=== PATIENT | male | born 1945 | race Caucasian/White ===

== ENCOUNTER 2024-07-05 10:50 | Inpatient (IN) | payer MEDICARE, SELFPAY ==
[2024-06-30 10:06] VITALS: BMI 24.0
[2024-06-30 11:04] LABS: % Basophils 0.7 % (0-2); % Eosinophils 1.6 % (0-6); % Immature Granulocytes 0.5 % (0-0.5); % Lymphocytes 17.4 % (20.5-51.1); % Monocytes 8.7 % (1.7-9.3); % Neutrophils 71.1 % (42.2-75.2); Absolute Basophils 0.1 10^3/uL (0-0.2); Absolute Eosinophils 0.2 10^3/uL (0-0.7); Absolute Immature Granulocytes 0.1 10^3/uL (0-0.05); Absolute Lymphocytes 2.4 10^3/uL (1.2-3.4); Absolute Monocytes 1.2 10^3/uL (0.1-0.6); Absolute Neutrophils 9.6 10^3/uL (1.4-6.5); Hemoglobin 12.6 g/dL (13.0-18.0); Mean Corp Hgb Conc. 33.2 g/dL (33.0-37.0); Mean Corpuscular Hgb 30.1 pg (27.0-31.0); Mean Corpuscular Volume 90.9 fL (80.0-94.0); Mean Platelet Volume 9.6 fL (7.4-10.4); Nucleated Red Blood Cells % 0 % (-); Platelet Count 224 10^3/uL (130-400); Red Blood Cell Count 4.18 10^6/uL (4.70-6.10); Red Cell Dist. Width 16.1 % (11.5-14.5); White Blood Cell Count 13.5 10^3/uL (4.8-10.8)
[2024-06-30 11:10] LABS: INR 1.12; PT 14.5 Sec (11.4-14.6)
[2024-06-30 11:11] LABS: APTT 30.4 Sec (23.4-35.0)
[2024-06-30 11:22] LABS: Blood Urea Nitrogen 54 mg/dl (9-20); Carbon Dioxide 33 mmol/L (22-30); Chloride 98 mmol/L (98-107); Estimated Creatinine Clearance 21 ml/min; Glucose 101 mg/dl (70-99); Potassium 4.1 mmol/L (3.5-5.1); Sodium 141 mmol/L (135-145); eGFR 26.78
--- NOTE | 2024-07-01 09:34 | PTCARENOTE ---
Halle @ Dr. Harrison office notified of patients 06/30- BUN-54; Creat-2.4; GFR 26.78
[2024-07-05] VITALS (19 sets, daily range): BP systolic 114–197; BP diastolic 49–103; BMI 24.0; BMI 24.2
--- NOTE | 2024-07-05 11:03 | W.SUR.PREOP ---
Pre-Operative Surgical Note
-
I have examined this patient prior to the performance of the scheduled procedure.
The patient's condition is unchanged from the time of the current History and
Physical and the patient is able to undergo the scheduled procedure.
[2024-07-05] MEDS: BACTROBAN NASAL 1 GRAM NASAL (12:19)
[2024-07-05] MEDS: PERIDEX 0.12% ORAL RINSE 15 ML PO (12:19)
[2024-07-05] MEDS: NSS 500 IV (12:19)
[2024-07-05 15:42] LABS: ACT-LR - POC 318 Seconds (116-155)
[2024-07-05 15:49] LABS: Glucose - Point of Care 92 mg/dl (70-99)
--- NOTE | 2024-07-05 16:29 | OR.RPT ---
Operative Report
Operative Report
Date of Operation: 07/05/2024
Pre Op Diagnosis: Asymptomatic high-grade stenosis of the left internal carotid artery
Post Op Diagnosis: Asymptomatic high-grade stenosis of the left internal carotid artery
Procedure: LEFT carotid endarterectomy with patch angioplasty using bovine pericardium
Surgeon: Alexander Pastrana III, MD
Chemistry Technical Officer: Suzette Ignacio MD PGY-8
Anesthesia: General
Complications: None
History and Indications for Procedure: 79-year-old male with high-grade stenosis of the left internal carotid artery, asymptomatic
Procedure in Detail: Chi Downing was correctly identified and placed supine on the operating table. After adequate induction of anesthesia the left neck was positioned, prepped and draped in the usual sterile fashion. Preoperative antibiotics were
administered. A timeout procedure was performed with the nursing and anesthesia staff confirming the patients identity as well as the nature and laterality of the procedure.
The carotid bifurcation was marked with ultrasound at the beginning of the case. The incision was planned accordingly. An incision was made along the anterior border of the left sternocleidomastoid muscle. Electrocautery was used to divide the
subcutaneous tissue and platysma. The carotid sheath was entered with sharp dissection. The internal jugular vein was retracted laterally. The vagus nerve was identified and protected throughout the case. The common carotid artery was identified at
the base of this incision and carefully encircled with a vessel loop. The patient was systemically heparinized. The dissection was continued distally towards the carotid bifurcation. The facial vein was skeletonized, ligated and divided between ties
and clips. The proximal external carotid artery was encircled with a vessel loop. The distal internal carotid artery was encircled with a vessel loop at a soft spot on the artery beyond the plaque. The hypoglossal nerve was identified and protected.
The internal vessel loop was secured followed by the common and external. An arteriotomy was made on the distal common carotid artery with an 11-blade. This was extended proximally and distally with Galvan scissors. The arteriotomy was extended
distally through the plaque to an area of normal appearing internal carotid artery. The distal vessel loop was replaced with a short tip hockey-stick type vascular clamp. An endarterectomy was performed with a [place] elevator in the standard
fashion. The proximal extent of the plaque was transected with scissors. The distal end of the plaque in the internal carotid artery feathered very nicely with no distal intimal flap identified. The plaque extending into the external carotid artery
was everted. Once the plaque was fully removed the endarterectomy plane was irrigated with heparinized saline and any loose fronds of tissue were removed. A pre-cut piece of bovine pericardium was sewn in place using a running 6-0 Prolene suture.
Prior to the completion of the patch the common carotid was allowed to forward bleed and the external was allowed to back bleed. The area under the patch was irrigated with heparinized saline to remove any potential thrombus or debris. The
anastomosis was completed.
The external vessel loop was released first, followed by the common and then the internal. There was an excellent pulse in the distal internal carotid artery. An excellent quality Doppler signal in the distal internal carotid artery was also
confirmed. The patch suture line was closely inspected for hemostasis and was achieved. Protamine was administered. Hemostasis was achieved in the wound bed. The wound was irrigated with saline solution.
The wound was then closed in layers. Sterile dressings were applied. The patient awoke from anesthesia with no immediate neuro deficits and was taken to the PACU in stable condition.
Attestation: I was present and responsible for the entire procedure
Signed:
Alexander Pastrana III, MD
[facility] Surgery
[phone] (cell)
--- NOTE | 2024-07-05 16:30 | CON.INTV ---
Consultation
Consultation Request
Date/Time Consultation Requested: 07/05/2024 - 153
Date/Time Consultation Performed: 07/05/2024 - 160
Requesting Provider: REYMUNDO Panchal
Performing Provider: Myles Cardona MD
Reason for Consultation: s/p L-CEA
Medical History
-
Chief Complaint: Elective left CEA
History of Present Illness:
79-year-old male tobacco smoker with a past medical history of bilateral carotid artery stenosis and AAA without rupture who presents with elective left carotid endarterectomy. He is known to vascular surgery with Dr. Pastrana with last office visit
on 05/03/2024. He has significant stenosis in the proximal left ICA. He remains asymptomatic denying slurred speech, facial droop, vision loss or recent stroke/TIA. Vascular intervention was discussed with left carotid endarterectomy including its
risks and benefits, and today he underwent a left carotid endarterectomy with patch angioplasty using bovine pericardium. There were no immediate complications and he was transferred to the ICU postoperatively for further care, and supervisor game farm
services now consulted for additional management/recommendations.
When I saw the patient he was resting in bed in no acute distress. He says he has some nausea but no abdominal pain, diarrhea, fevers or chills. Also denies chest pain, shortness of breath or headache. Heart rate 51, BP via right radial A-line
157/54 and he is saturating 90% on 2 L/min nasal cannula. He says he still smokes a few cigars a day and used to smoke 1-2 packs/day for 20 years, quit about 20 years ago.
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
colonic diverticulosis, BPH, senile dementia, TIA, spinal stenosis s/p laminectomy (07/2021), anemia, iron deficiency
PSHx: Carotid surgery (right side � [facility] 2013), AAA surgery (2014), endovascular repair of aortic aneurysm (October 2015), carotid thromboendarterectomy (05/2010), renal artery aneurysm angioplasty of in-stent stenosis (left renal artery � 08/2017)
Past Medical History
Past Medical History: Other (Above as per HPI)
Past Surgical History: Other (Above as per HPI)
Social History
Tobacco: Smoker (Former 1-2 PPD X 20 years, quit about 20 years ago; still smokes a few small cigars a day)
Alcohol: None
Drug: None
Family History
Family History: CAD (Mother; 3 brothers: Open heart surgery), Cancer (2 sisters), Diabetes (Siblings) and Other (Father: Cerebral aneurysm)
Allergies / Home Medications
Allergies
Allergy/AdvReac Type Severity Reaction Status Date / Time
yellow dye Allergy skin Verified 07/05/24 12:08
became red
and hot
Home Medications
�Medication �Instructions �Recorded �Confirmed �Last Taken �Type
ascorbic acid (vitamin C) 500 mg 500 mg PO DAILY 06/25/24 07/05/24 07/05/24 07:00 History
tablet (Vitamin C)
atorvastatin 80 mg tablet 80 mg PO DAILY 06/25/24 07/05/24 07/05/24 07:00 History
carvedilol 6.25 mg tablet 6.25 mg PO BID 06/25/24 07/05/24 07/05/24 07:00 History
cholecalciferol (vitamin D3) 10 20 mcg PO DAILY 06/25/24 07/05/24 07/04/24 20:00 History
mcg (400 unit) tablet (Vitamin D3)
clopidogrel 75 mg tablet (Plavix) 75 mg PO DAILY 06/25/24 07/05/24 07/05/24 07:00 History
eplerenone 25 mg tablet 25 mg PO DAILY 06/25/24 07/05/24 Unknown History
ferrous sulfate 325 mg (65 mg 325 mg PO .EVERY OTHER DAY 06/25/24 07/05/24 07/04/24 07:00 History
iron) tablet (iron)
furosemide 80 mg tablet 80 mg PO DAILY 06/25/24 07/05/24 07/04/24 07:00 History
gabapentin 300 mg capsule 300 mg PO BID 06/25/24 07/05/24 07/05/24 07:00 History
hydralazine 100 mg tablet 100 mg PO BID 06/25/24 07/05/24 07/05/24 07:00 History
isosorbide mononitrate 120 mg 120 mg PO DAILY 06/25/24 07/05/24 07/05/24 07:00 History
tablet,extended release 24 hr
lutein 20 mg tablet 20 mg PO DAILY 06/25/24 07/05/24 07/05/24 07:00 History
metolazone 2.5 mg tablet 2.5 mg PO DAILY 06/25/24 07/05/24 07/05/24 07:00 History
Review of Systems
-
History Source: Patient
All other systems: Negative unless noted
Vitals / Labs / Diagnostic Testing
Vital Signs
Temp Pulse Resp BP Pulse Ox
97.5 F 50 20 159/82 97
07/05/24 19:55 07/05/24 20:03 07/05/24 19:15 07/05/24 19:53 07/05/24 19:15
Lab Data
07/05/24 17:18
07/05/24 17:18
Laboratory Results
07/05/24
17:17
PT 15.4 H
INR 1.24
APTT 33.2
Diagnostic Testing:
Physical Exam
-
HEENT: Normocephalic and Anicteric
Cardiovascular: S1/S2 and Peripheral Edema (negative)
Respiratory: Wheeze (negative), Rales (negative), Rhonchi (negative) and Non-Labored Respirations
GI: Soft, Non Distended, Non Tender and Normal Bowel Sounds
Neurology: AO x 3 and Tremors (negative)
Skin: Warm, Dry and Other (Vertical incision scar seen over the left side of anterior neck)
General: Respiratory Distress (negative), Comfortable, Chills (negative) and Sweats (negative)
Assessment
-
Assessment: 79-year-old male tobacco smoker with a past medical history of bilateral carotid artery stenosis and AAA without rupture who presents with elective left carotid endarterectomy. He is known to vascular surgery with Dr. Pastrana with last
office visit on 05/03/2024. He has significant stenosis in the proximal left ICA. He remains asymptomatic denying slurred speech, facial droop, vision loss or recent stroke/TIA. Vascular intervention was discussed with left carotid endarterectomy
including its risks and benefits, and today he underwent a left carotid endarterectomy with patch angioplasty using bovine pericardium. There were no immediate complications and he was transferred to the ICU postoperatively for further care, and
supervisor game farm services now consulted for additional management/recommendations.
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
history of COVID-19, colonic diverticulosis, BPH, senile dementia, TIA, spinal stenosis s/p laminectomy (07/2021), anemia, iron deficiency
Impression:
#Asymptomatic high-grade left internal carotid artery stenosis s/p left carotid endarterectomy with patch angioplasty using bovine pericardium (POD #0)
#Acute respiratory failure with hypoxia on supplemental oxygen
#Anemia
#Active tobacco user
#Elevated creatinine (KELLY versus CKD as no known baseline)
#History of TIA/CVA
#History of COVID-19
#AAA without rupture
Plan:
Postoperative surgical intensive care unit monitoring
Supplemental oxygen to maintain SpO2 >90-94%, wean down O2 as tolerated
prn nebulized bronchodilators - not currently bronchospastic
Incentive spirometry encouraged 10x per hour for at least 4 hrs a day
Aspiration precautions
Pain control
Neuro and vascular checks per protocol
Maintain MAP>65
Replete electrolytes with K>4, Mg>2
Maintain euglycemia with goal BG 140-180
Vascular surgery following-correspondence and operative notes reviewed
Transfuse blood products as needed to keep Hb>7g/dL, and plt>50k (given post-operative status)
Nicotine patch
Tobacco cessation encouraged
He says he quit smoking >20 years ago but still smokes small cigars (2-3 a day); does not qualify for LDCT chest imaging given his age, although some insurances would accept imaging through age 80. Can discuss this with him further in the office
DVT prophylaxis: HSQ
Early nutrition
Early mobilization
Critical care statement: A total of 44 minutes of critical care time was provided for this patient today. This includes management of unstable vital signs, evaluation of the patient at bedside, reviewing the patient's pertinent medical records
including radiographs, microbiology, laboratory evaluations, and discussion with primary team, consultants, pharmacy, nutrition, physical therapy, case management, charge nurse, critical care nursing, and respiratory therapy.
[2024-07-05] MEDS: DILAUDID 0.25 MG IV ×2 (17:28→18:00)
[2024-07-05 17:33] LABS: Hemoglobin 11.3 g/dL (13.0-18.0); Mean Corp Hgb Conc. 33.2 g/dL (33.0-37.0); Mean Corpuscular Volume 87.2 fL (80.0-94.0); Mean Platelet Volume 9.7 fL (7.4-10.4); Platelet Count 186 10^3/uL (130-400); Red Cell Dist. Width 16.2 % (11.5-14.5); White Blood Cell Count 14.6 10^3/uL (4.8-10.8)
[2024-07-05 17:39] LABS: INR 1.24; PT 15.4 Sec (11.4-14.6)
[2024-07-05 17:40] LABS: APTT 33.2 Sec (23.4-35.0)
[2024-07-05 17:42] LABS: Blood Urea Nitrogen 40 mg/dl (9-20); Calcium 8.7 mg/dl (8.4-10.2); Carbon Dioxide 30 mmol/L (22-30); Chloride 100 mmol/L (98-107); Estimated Creatinine Clearance 24 ml/min; Glucose 93 mg/dl (70-99); Potassium 3.6 mmol/L (3.5-5.1); Sodium 141 mmol/L (135-145); eGFR 31.43
[2024-07-05 17:45] LABS: Glucose - Point of Care 103 mg/dl (70-99)
[2024-07-05] MEDS: NSS 1000 IV (17:56)
--- NOTE | 2024-07-05 18:56 | SUR.PHASEI ---
patient in pacu post carotid endart. awake and alert. confused initially and wants to get OOB. easily reoriented. DOUGLAS, equal strength bilaterally. vss, stef zeroed at phlebostatic axis. medicated x2 with dilaudid for neck pain with relief.
labs, ecg and pcxr completed and patient transferred to ICCU - hand off at bedside.
--- NOTE | 2024-07-05 19:00 | PTCARENOTE ---
patient received from PACU@[id number]. patient neuro intact, monitor sinus winston with avb. right radial arterial line in place, cuff correlation. oriented to room. urinal at bedside. call garcia in reach. report to oncoming RN
[2024-07-05] MEDS: APRESOLINE 100 MG PO (19:53)
[2024-07-05] MEDS: NEURONTIN 300 MG PO (19:54)
[2024-07-05] MEDS: ZOFRAN 4 MG IV (21:01)
--- NOTE | 2024-07-05 22:19 | PTCARENOTE ---
Pt received awake alert and oriented. Neuro checks being done q1. R radial a-line intact with good waveform. Pt sinus winston on monitor with 1st degree AV block. Heart rate low 50s. Assessment as charted. Pt c/o nausea-med with zofran. Resting when
undisturbed.
[2024-07-05] MEDS: HEPARIN 5000 UNITS SC (23:11)
[2024-07-06] VITALS (11 sets, daily range): BP systolic 111–150; BP diastolic 45–112; BMI 24.0
[2024-07-06 04:31] LABS: Hematocrit 33.3 % (39.0-52.0); Hemoglobin 11.2 g/dL (13.0-18.0); Mean Corp Hgb Conc. 33.6 g/dL (33.0-37.0); Mean Corpuscular Hgb 30.4 pg (27.0-31.0); Mean Corpuscular Volume 90.2 fL (80.0-94.0); Mean Platelet Volume 10.4 fL (7.4-10.4); Platelet Count 162 10^3/uL (130-400); Red Blood Cell Count 3.69 10^6/uL (4.70-6.10); White Blood Cell Count 8.3 10^3/uL (4.8-10.8)
[2024-07-06 04:44] LABS: INR 1.17; PT 14.7 Sec (11.4-14.6)
[2024-07-06 04:45] LABS: APTT 36.4 Sec (23.4-35.0)
[2024-07-06 04:58] LABS: Blood Urea Nitrogen 42 mg/dl (9-20); Calcium 8.5 mg/dl (8.4-10.2); Carbon Dioxide 27 mmol/L (22-30); Chloride 100 mmol/L (98-107); Estimated Creatinine Clearance 25 ml/min; Glucose 112 mg/dl (70-99); Magnesium 1.3 mg/dl (1.6-2.3); Phosphorus 4.4 mg/dl (2.5-4.5); Sodium 140 mmol/L (135-145); eGFR 33.32
[2024-07-06] MEDS: MAGNESIUM SULFATE 50 IV (05:17)
--- NOTE | 2024-07-06 05:33 | PTCARENOTE ---
Pt remains alert and oriented. Tongue midline. Smile symmetrical. Strength equal bilat. Voiding without difficulty. Tolerating clear liquids. Assessment unchanged.
[2024-07-06] MEDS: NSS IV (06:05)
--- NOTE | 2024-07-06 07:00 | PTCARENOTE ---
Received patient from night time babysitter. Patient is AAOx4. Neuro checks unchanged WNL. Sinus rhythm on monitor. On room air, overnight had desaturated into 80s, required 2 L. Patient is written for regular diet. using urinal at bedside. Right
radial Marcela transduced, leveled at phlebostatic axis. Left neck insicision approximated, skin glue intact, surrounding skin ecchymotic. Using Ice intermittently. Will review orders, potential discharge today.
--- NOTE | 2024-07-06 08:01 | W.PN.VS ---
Addendum entered and electronically signed by Alexander Pastrana III, MD 07/06/24 10:29:
This patient was seen and examined with REYMUNDO Panchal. I agree with the history and physical exam as well as the assessment and plan. I have the following additions:
Looks great
Agree with plan
Signed:
Alexander Pastrana III, MD
[facility] V[facility] Surgery
[phone] (cell)
Original Note:
Today's Communication / Plan
-
Seen and assessed the Dr. Pastrana
Assessment/Plan
-
POD #1 left CEA
Plan:
-DC A-line
-DC IV fluids
-P.o. medications, Coreg 6.25 decreased from twice daily to 1 time a day as per cardiology recommendation from prior office visit
-Increase diet
-Out of bed/ambulate
-Likely DC later today
Subjective Data
-
Date of Service: July 06, 2024
Patient seen at bedside this a.m. with Dr. Pastrana. No complaints at this time. No events overnight. No pressors overnight
Objective Data
-
Vital Signs
Temp Pulse Resp BP Pulse Ox
98.3 F 55 20 139/81 97
07/06/24 03:30 07/06/24 06:00 07/06/24 06:00 07/06/24 06:00 07/06/24 06:00
Intake and Output
07/05/24 07/06/24 07/07/24
06:59 06:59 06:59
Intake Total 1660 / 1660
Output Total 1000 / 1000
Balance 660 / 660
Intake:
Oral fluids 500 / 500
IV fluids (Total) 1110 / 1110
Nss 1,000 ml @ 80 mls/hr IV . 960 / 960
[id number] [facility] Rx#:[id number]
nss 150 / 150
IV piggybacks 50 / 50
Output:
Urine, Voided 1000 / 1000
Lab Results
07/06/24 04:13
07/06/24 04:13
Calcium 8.5 mg/dl (8.4-10.2) 07/06/24 04:13
Phosphorus 4.4 mg/dl (2.5-4.5) 07/06/24 04:13
Magnesium 1.3 mg/dl (1.6-2.3) L 07/06/24 04:13
Physical Exam
-
AAOx3
No tachypnea
No tachycardia
Neck site clean, dry, intact, no drainage noted, no ecchymosis
Moves extremities equally to command
Tongue midline
[2024-07-06] MEDS: APRESOLINE 100 MG PO (08:05)
[2024-07-06] MEDS: LIPITOR 80 MG PO (08:05)
[2024-07-06] MEDS: VITAMIN D3 (cholecalciferol) 20 MCG PO (08:05)
[2024-07-06] MEDS: LASIX 80 MG PO (08:06)
[2024-07-06] MEDS: IMDUR (EXTENDED RELEASE) 120 MG PO (08:07)
[2024-07-06] MEDS: ZAROXOLYN 2.5 MG PO (08:07)
[2024-07-06] MEDS: PLAVIX 75 MG PO (08:07)
[2024-07-06] MEDS: NEURONTIN 300 MG PO (08:07)
[2024-07-06] MEDS: VITAMIN C 500 MG PO (08:07)
[2024-07-06] MEDS: HEPARIN 5000 UNITS SC (08:08)
--- NOTE | 2024-07-06 08:23 | W.PN.INTV ---
Today's Communication / Plan
Recommendations
Up OOB as tolerated
Pain control
Maintain SpO2 >90-94%
Outpatient follow-up with vascular surgery
Patient desaturated overnight which is suspicious for sleep apnea, which will be discussed in the office. Also recommend outpatient follow-up regarding his tobacco smoking history with need for full PFTs and discussion of LDCT chest.
Patient is being prepared for discharge home. No additional recommendations at this time. Kiosk Sales Representative/Pulmonary service will now sign off. Please reconsult if there are any additional questions/concerns, or if patient's respiratory status
deteriorates.
Assessment
-
Assessment: 79-year-old male tobacco smoker with a past medical history of bilateral carotid artery stenosis and AAA without rupture who presents with elective left carotid endarterectomy. He is known to vascular surgery with Dr. Pastrana with last
office visit on 05/03/2024. He has significant stenosis in the proximal left ICA. He remains asymptomatic denying slurred speech, facial droop, vision loss or recent stroke/TIA. Vascular intervention was discussed with left carotid endarterectomy
including its risks and benefits, and today he underwent a left carotid endarterectomy with patch angioplasty using bovine pericardium. There were no immediate complications and he was transferred to the ICU postoperatively for further care, and
radiotelegraphist services now consulted for additional management/recommendations.
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
history of COVID-19, colonic diverticulosis, BPH, senile dementia, TIA, spinal stenosis s/p laminectomy (07/2021), anemia, iron deficiency
Impression:
#Asymptomatic high-grade left internal carotid artery stenosis s/p left carotid endarterectomy with patch angioplasty using bovine pericardium (POD #1)
#Acute respiratory failure with hypoxia - desaturated overnight, suspicious for LENNOX
#Anemia
#Active tobacco user
#Elevated creatinine (KELLY versus CKD as no known baseline)
#History of TIA/CVA
#History of COVID-19
#AAA without rupture
Plan:
Postoperative surgical intensive care unit monitoring
Supplemental oxygen to maintain SpO2 >90-94%, wean down O2 as tolerated
prn nebulized bronchodilators - not currently bronchospastic
Incentive spirometry encouraged 10x per hour for at least 4 hrs a day
Aspiration precautions
Pain control
Neuro and vascular checks per protocol
Maintain MAP>65
Replete electrolytes with K>4, Mg>2
Maintain euglycemia with goal BG 140-180
Vascular surgery following-correspondence and operative notes reviewed
Transfuse blood products as needed to keep Hb>7g/dL, and plt>50k (given post-operative status)
Nicotine patch
Tobacco cessation encouraged
He says he quit smoking >20 years ago but still smokes small cigars (2-3 a day); does not qualify for LDCT chest imaging given his age, although some insurances would accept imaging through age 80. Can discuss this with him further in the office
DVT prophylaxis: HSQ
Early nutrition
Early mobilization
Patient is being prepared for discharge home. Given his tobacco smoking history with concern for COPD and also with questionable qualification for LDCT chest for lung cancer screening, I will arrange for outpatient office follow-up. Otherwise, no
additional recommendations at this time. Kiosk Sales Representative/Pulmonary service will now sign off. Thank you for allowing us to be involved in the care of this patient. Please reconsult if there are any additional questions/concerns, or if patient's
respiratory status deteriorates.
Total time spent today was 44 minutes for this encounter. Time includes reviewing laboratory test/imaging results, reviewing pertinent medical records, obtaining and reviewing medical history, performing an appropriate exam, ordering medications,
tests and procedures. Time also includes documentation of this encounter, coordinating patient care and communicating with other healthcare professionals. Total time does not include separately billed tests performed on this date of service.
Subjective Dataa
Subjective Data
Date of Service:
Date of Service: July 06, 2024
Chief Complaint: Kiosk Sales Representative Follow Up
Subjective:
Patient seen and evaluate this morning. Heart rate 68, BP 1 33-58 and saturating 95% on room air. No acute events 0.49. Awaiting discharge home. He denies chest pain, OGLESBY, abdominal pain, fevers or chills.
Review of Systems
General: Other (Negative unless mentioned above)
Objective Data
Data Reviewed
Vital Signs / I&O / Oxygen:
Vital Signs
Temp Pulse Resp BP Pulse Ox
97.4 F 57 33 147/57 94
07/06/24 08:25 07/06/24 08:00 07/06/24 08:00 07/06/24 08:07 07/06/24 08:29
Intake and Output
07/05/24 07/06/24 07/07/24
06:59 06:59 06:59
Intake Total 1660 / 1740 320 / 320
Output Total 1000 / 1000
Balance 660 / 740 320 / 320
SaO2 94
Nasal Cannula flow liters per 2
minute
Physical Exam
General: Respiratory Distress (negative), Comfortable, Chills (negative) and Sweats (negative)
HEENT: Normocephalic, Anicteric and Moist Mucous Membranes
Cardiovascular: S1-S2 and Peripheral Edema (negative)
Respiratory: Clear, Wheeze (negative), Crackles (negative), Rhonchi (negative) and Non-Labored Respirations
GI: Soft, Non Distended, Non Tender and Normal Bowel Sounds
Neurology: Awake, AO x 3 and Tremors (negative)
Skin: Warm, Dry, Cyanosis (negative), Jaundice (negative) and Other (Vertical incision scar seen over the left side of anterior neck)
Labs/Micro/Reports
Lab Data
07/06/24 04:13
07/06/24 04:13
Laboratory Results
07/05/24 07/06/24
17:17 04:13
PT 15.4 H 14.7 H
INR 1.24 1.17
APTT 33.2 36.4 H
--- NOTE | 2024-07-06 08:32 | PTCARENOTE ---
assisted patient in setting up breakfast tray. Discontinued A-line, will assist patient in getting OOB.
--- NOTE | 2024-07-06 09:53 | CM ---
CM following re: discharge planning.
Reviewed pt's chart, met with pt.
Pt is a 79 year old male, admitted with primary dx of POD #1 left CEA. Per Vascular surgery pt most likely will be discharged ho e this afternoon. Pt is aware, expressed his agreement and he stated his son will transport home. IMM reviewed, placed
on chart, pt has a copy.
Pt reports he lives with daughter in a mobile home, no steps to enter, has 2 supportive children. Pt reports he mostly ambulates with a cane, has a walker. No VN or SNF history.
PCP: [facility]hu[facility]
Pharmacy: [facility]
D/C plan: home no needs. Son to transport.
--- NOTE | 2024-07-06 11:01 | W.DS.TRANS ---
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
-
Discharge Instructions:
Discharge Diagnosis/Procedures Left Carotid Endarterectomy
Diet As tolerated
Activity No strenuous activity
Driving Restrictions Not until seen by your Dr
Bathing Restrictions OK to Shower
Instructions:
Stand-Alone Forms: DC Instr - Vascular OR
Changes to Home Medications: No
Discharge Medications:
DC Medications w/original date entered in [facility]
ascorbic acid (vitamin C) 500 mg tablet (Vitamin C) 500 mg PO DAILY Supplement 06/25/24
atorvastatin 80 mg tablet 80 mg PO DAILY High Cholesterol 06/25/24
carvedilol 6.25 mg tablet 6.25 mg PO DAILY Blood Pressure 06/25/24
cholecalciferol (vitamin D3) 10 mcg (400 unit) tablet (Vitamin D3) 20 mcg PO DAILY Supplement 06/25/24
clopidogrel 75 mg tablet (Plavix) 75 mg PO DAILY Blood Clot Prevention/Tx 06/25/24
eplerenone 25 mg tablet 25 mg PO DAILY Heart Disease/Condition 06/25/24
ferrous sulfate 325 mg (65 mg iron) tablet (iron) 325 mg PO .EVERY OTHER DAY Supplement 06/25/24
furosemide 80 mg tablet 80 mg PO DAILY Fluid Retention/Swelling 06/25/24
gabapentin 300 mg capsule 300 mg PO BID Pain 06/25/24
hydralazine 100 mg tablet 100 mg PO BID Blood Pressure 06/25/24
isosorbide mononitrate 120 mg tablet,extended release 24 hr 120 mg PO DAILY Blood Pressure 06/25/24
lutein 20 mg tablet 20 mg PO DAILY Supplement 06/25/24
metolazone 2.5 mg tablet 2.5 mg PO DAILY Fluid Retention/Swelling 06/25/24
Home Medication Changes
Pending Results: No
--- NOTE | 2024-07-06 11:16 | PTCARENOTE ---
Ambulated patient around unit/hallway, standby supervision. no complaints/issues
== END 2024-07-06 13:15 | disposition home or self-care (01) | DRG 37 ==
LOC: ICU 10:50
PROVIDERS: Nurse Practitioner Acute Care; ADMITTING PHYSICIAN Surgery Vascular Surgery; CONSULT PHYSICIAN Internal Medicine Critical Care Medicine; FAMILY PHYSICIAN Family Medicine
PROC: 03CL0ZZ Extirpation of Matter from Left Internal Carotid Artery, Open Approach (ICD-10-PCS; 2024-07-05)
PROC: 03UL0KZ Supplement Left Internal Carotid Artery with Nonautologous Tissue Substitute, Open Approach (ICD-10-PCS; 2024-07-05)
DX: I65.23 Occlusion and stenosis of bilateral carotid arteries (principal); J96.01 Acute respiratory failure with hypoxia; I42.8 Other cardiomyopathies; I50.32 Chronic diastolic (congestive) heart failure; I12.9 Hypertensive chronic kidney disease with stage 1 through stage 4 chronic kidney disease, or unspecified chronic kidney disease; I70.1 Atherosclerosis of renal artery; N40.0 Benign prostatic hyperplasia without lower urinary tract symptoms; F17.210 Nicotine dependence, cigarettes, uncomplicated; N18.30 Chronic kidney disease, stage 3 unspecified; F03.90 Unspecified dementia, unspecified severity, without behavioral disturbance, psychotic disturbance, mood disturbance, and anxiety; D63.1 Anemia in chronic kidney disease; G47.33 Obstructive sleep apnea (adult) (pediatric); G62.9 Polyneuropathy, unspecified; I25.2 Old myocardial infarction; Z95.828 Presence of other vascular implants and grafts; Z79.02 Long term (current) use of antithrombotics/antiplatelets; Z79.899 Other long term (current) drug therapy; Z86.79 Personal history of other diseases of the circulatory system; Z86.73 Personal history of transient ischemic attack (TIA), and cerebral infarction without residual deficits; Z86.16 Personal history of COVID-19; Z82.49 Family history of ischemic heart disease and other diseases of the circulatory system
CPT/HCPCS: 88304; 88311; 35301; 36415; 71045; 71046; 80048; 82962; 83735; 84100; 85025; 85027; 85610; 85730; 93005; 95938; 95941; 95955

== ENCOUNTER → 2025-08-15 10:02 | Outpatient (REF) | payer MEDICARE, SELFPAY | LOC: RAD 10:02 | PROVIDERS: ATTENDING PHYSICIAN Physician Assistant; FAMILY PHYSICIAN Internal Medicine Cardiovascular Disease; REFERRING PHYSICIAN Surgery Vascular Surgery | DX: I71.40 Abdominal aortic aneurysm, without rupture, unspecified (principal); I65.23 Occlusion and stenosis of bilateral carotid arteries | CPT/HCPCS: 76770; 93880 ==

== ENCOUNTER 2025-09-02 11:20 | Inpatient (IN) | payer MEDICARE, SELFPAY ==
[2025-09-02 12:29] LABS: Hematocrit 34.9 % (39.0-52.0); Hemoglobin 11.3 g/dL (13.0-18.0); Mean Corp Hgb Conc. 32.4 g/dL (33.0-37.0); Mean Corpuscular Volume 94.3 fL (80.0-94.0); Platelet Count 156 10^3/uL (130-400); Red Cell Dist. Width 15.3 % (11.5-14.5)
[2025-09-02 12:37] LABS: Blood Urea Nitrogen 34 mg/dl (9-20); Calcium 9.7 mg/dl (8.4-10.2); Carbon Dioxide 27 mmol/L (22-30); Chloride 101 mmol/L (98-107); Glucose 70 mg/dl (70-99); Potassium 4.1 mmol/L (3.5-5.1); Sodium 135 mmol/L (135-145); eGFR 18.84
[2025-09-02 12:39] LABS: INR 1.12; PT 14.6 Sec (11.4-14.6)
[2025-09-02 12:40] LABS: APTT 31.4 Sec (23.4-35.0)
[2025-09-02 13:03] VITALS: BP 177/70
[2025-09-02 13:25] VITALS: BMI 23.2
[2025-09-02] MEDS: NSS 500 IV (13:42)
--- NOTE | 2025-09-02 16:21 | W.PN.UPDATE ---
Update Note
Progress Note Update
Patient has history of CKD with baseline Cr of ~2-2.4 (from 2023) however on today's preop labs his Cr is up significantly to 3.2 and his GFR ~19.
He has been told to see nephrology in the past and more recently but has not followed through with this recommendation.
The plan was for transfemoral left carotid artery stenting today which will involve contrast dye. Given the acute on chronic kidney disease I would like to admit him for evaluation by nephrology. We will plan to manage this as an inpatient. If
nephrology feels that he it is ok to proceed with intervention I could perhaps do this early next week.
Alexander Pastrana III, MD
Vascular Surgery
[facility]
--- NOTE | 2025-09-02 16:32 | PTCARENOTE ---
dr marin made aware of labs bun 34, creat 3.2. dr marin out to speak w pt and sister. pt to be admitted. procedure to be cancelled for today
--- NOTE | 2025-09-02 17:52 | W.CON.NEPH ---
Consultation
-
Date/Time Consultation Requested: 09/02/2025 4 PM
Date/Time Consultation Performed: 09/02/2025 6 PM
Requesting Provider: Dr. Pastrana
Performing Provider: Dr. Russo
Reason for Consultation: CKD 4
Medical History
-
Chief Complaint: Rising creatinine
History of Present Illness:
This is an 80-year-old gentleman with hypertension suboptimally controlled on a multidrug regimen, significant vascular disease on Plavix, heart failure reduced ejection fraction of around 40% on chronic diuretic therapy. Prior to significant
vascular disease includes infrarenal abdominal aortic aneurysm stented, left renal artery stenting, right carotid endarterectomy. He has been evaluate for left carotid stenting but laboratory values disclosed a creatinine of 3.2. Last known
creatinine prior to that was June 27, 2025 at 3.09. Given the elevated creatinine asked assist with management of his CKD and potential contrast nephropathy risk. Which we noted that he was recommended to see nephrology in the past but has
never done so. He says that he had tried to make an appointment recently but the wait was 4 to 6 weeks.
Past Medical History
Left renal artery stenosis with stenting October 18, 2015 with dilation September 04, 2017
Infrarenal abdominal aortic artery stent
right carotid endarterectomy
Hypertension
Heart failure with reduced ejection fraction
Spinal stenosis with laminectomy
IgM MGUS
Diverticulosis
CKD 4
BPH
TIA
Hyperlipidemia
Bilateral inguinal hernias
Social History
Tobacco: Non-Smoker
Alcohol: None
Family History
Family History: Not Pertinent
Allergies / Home Medications
Allergy/AdvReac Type Severity Reaction Status Date / Time
yellow dye Allergy Rash-become Verified 09/02/25 17:02
red and hot
�Medication �Instructions �Recorded �Confirmed �Type
ascorbic acid (vitamin C) 500 mg 500 mg PO DAILY Supplement 06/25/24 09/02/25 History
tablet (Vitamin C)
atorvastatin 80 mg tablet 80 mg PO DAILY High Cholesterol 06/25/24 09/02/25 History
carvedilol 6.25 mg tablet 6.25 mg PO DAILY Blood Pressure 06/25/24 09/02/25 History
cholecalciferol (vitamin D3) 10 20 mcg PO DAILY Supplement 06/25/24 09/02/25 History
mcg (400 unit) tablet (Vitamin D3)
clopidogrel 75 mg tablet (Plavix) 75 mg PO DAILY Blood Clot 06/25/24 09/02/25 History
Prevention/Tx
eplerenone 25 mg tablet 25 mg PO DAILY Heart 06/25/24 09/02/25 History
Disease/Condition
ferrous sulfate 325 mg (65 mg 325 mg PO Q48H Supplement 06/25/24 09/02/25 History
iron) tablet (iron)
furosemide 80 mg tablet 80 mg PO DAILY Fluid 06/25/24 09/02/25 History
Retention/Swelling
hydralazine 100 mg tablet 100 mg PO BID Blood Pressure 06/25/24 09/02/25 History
isosorbide mononitrate 120 mg 120 mg PO BID Blood Pressure 06/25/24 09/02/25 History
tablet,extended release 24 hr
lutein 20 mg tablet 20 mg PO DAILY Supplement 06/25/24 09/02/25 History
clonidine HCl 0.1 mg tablet 0.1 mg PO HS 08/31/25 09/02/25 History
gabapentin 300 mg capsule 300 mg PO BID 08/31/25 09/02/25 History
pantoprazole 40 mg tablet,delayed 40 mg PO DAILY 08/31/25 09/02/25 History
release
potassium chloride 10 mEq 10 meq PO BID 08/31/25 09/02/25 History
capsule,extended release
spironolactone 25 mg tablet 25 mg PO DAILY 08/31/25 09/02/25 History
ezetimibe 10 mg tablet 10 mg PO DAILY 09/02/25 09/02/25 History
Review of Systems
-
No chest pain or shortness of breath
All other systems: Negative unless noted
Physical Exam
Vital Signs
Vital Signs
Temp Pulse Resp BP Pulse Ox
97.7 F 58 11 177/70 94
09/02/25 13:03 09/02/25 15:14 09/02/25 15:14 09/02/25 13:03 09/02/25 15:14
Lab Results
WBC 11.4 10^3/uL (4.8-10.8) H 09/02/25 12:01
RBC 3.70 10^6/uL (4.70-6.10) L 09/02/25 12:01
Hgb 11.3 g/dL (13.0-18.0) L 09/02/25 12:01
Hct 34.9 % (39.0-52.0) L 09/02/25 12:01
Plt Count 156 10^3/uL (130-400) 09/02/25 12:01
Sodium 135 mmol/L (135-145) 09/02/25 12:01
Potassium 4.1 mmol/L (3.5-5.1) 09/02/25 12:01
Chloride 101 mmol/L (98-107) 09/02/25 12:01
Carbon Dioxide 27 mmol/L (22-30) 09/02/25 12:01
BUN 34 mg/dl (9-20) H 09/02/25 12:01
Creatinine 3.2 mg/dL (0.7-1.3) H 09/02/25 12:01
eGFR 18.84 09/02/25 12:01
Glucose 70 mg/dl (70-99) 09/02/25 12:01
Calcium 9.7 mg/dl (8.4-10.2) 09/02/25 12:01
06/27/2025 creatinine 3.09, eGFR 20
08/15/2025 abdominal ultrasound atrophic left kidney
08/21/2025 CTA head high-grade stenosis of bilateral vertebral arteries, moderate stenosis bilateral distal ICA, moderate stenosis left subclavian artery
Physical Exam
Patient is awake alert oriented and in no distress. Mood and affect were pleasant, insight and judgment were good. Pupils are equal round and reactive to light, extraocular movements are intact, sclera were anicteric. Hearing was normal, ears and
nose are intact. Oropharynx was clear. Neck was supple with trachea midline and no thyromegaly. Heart was regular rate and rhythm without rubs. Lower extremities without edema. Lungs were clear to auscultation bilaterally and with normal
excursion. Abdomen was soft, nontender, with normal active bowel sounds, and no hepatosplenomegaly. There was an abdominal bruit. Skin was without rash and with normal turgor.
Data Reviewed
-
CT Scan: Report Reviewed by me
Ultrasound: Report Reviewed by me
Labs: Labs Reviewed by me
Old Records: Reviewed
Assessment/Plan
-
Assessment
CKD4, progressive
Left renal artery stenosis, atrophic left kidney
Peripheral vascular disease
Carotid artery stenosis, right endarterectomy
infrarenal abdominal aortic stent
Hypertension
Heart failure reduced ejection fraction
? IgM MGUS
Plan
Follow BMP
Renal ultrasound. If left kidney is atrophic, whether or not it was stented (patient disputes this fact) would be moot
Check electrophoresis
He also certainly could have had worsening renal function after his CTA which was performed as a stroke alert at an outside hospital
It is entirely likely that his current kidney function is the best that we will see with likely solitary functioning kidney with recent contrast exposure
Discussed with patient and
--- NOTE | 2025-09-02 17:54 | PTCARENOTE ---
Assumed care of patient from Pham Spicer RN. Patients procedure cancelled but will need inpatient bed. Awaiting orders.
--- NOTE | 2025-09-02 18:02 | PTCARENOTE ---
Report called to W. Dr. Russo at bedside in laborer landscape. Patient transferred to by PCT.
[2025-09-02 18:12] VITALS: BP 189/76
[2025-09-02 18:19] VITALS: BMI 22.6
--- NOTE | 2025-09-02 18:24 | PTCARENOTE ---
Received pt from lab pack chemist via wheelchair. Wheelchair placed next to bed, pt ambulated to bed with assist x1. AAOx3, forgetful, sister at bedside. Telemetry #19 placed reading NSR, BBB, prolonged qt. IV site in L FA assessed. Skin assessed, sacrum
blanchable red, not open. Pt verbalized understanding of call garcia. Call garcia within close reach. Will continue to monitor.
[2025-09-02] MEDS: NSS 1000 IV (18:31)
[2025-09-02 18:35] VITALS: BMI 22.6
[2025-09-02 19:00] VITALS: BP 153/62
[2025-09-02] MEDS: KCL 10 MEQ PO (22:03)
[2025-09-02] MEDS: IMDUR (EXTENDED RELEASE) 120 MG PO (22:04)
[2025-09-02] MEDS: APRESOLINE 100 MG PO (22:05)
[2025-09-02] MEDS: NEURONTIN 300 MG PO (22:06)
[2025-09-02 23:00] VITALS: BP 160/65
[2025-09-03] VITALS (8 sets, daily range): BP systolic 134–167; BP diastolic 51–67
[2025-09-03] MEDS: CATAPRES 0.1 MG PO (00:12)
[2025-09-03] MEDS: HEPARIN 5000 UNITS SC ×3 (00:13→15:29)
--- NOTE | 2025-09-03 02:58 | PTCARENOTE ---
patients heart rate on the monitor alarmed for bradycardia with a heart rate of 32. patient heart rate went right back up to the 50's. this RN went to assess the patient. patient asymptomatic. REYMUNDO Carlton notified. new orders received for morning
labs. POC ongoing.
--- NOTE | 2025-09-03 05:00 | W.PN.UPDATE ---
Update Note
Progress Note Update
RN reports patient having increased periods of bradycardia in 30s and dipped down to 20s. EKG shows 2nd degree heart block type 1 change from last EKG. Upon assessment, patient denies chest pain, lightheadness, dizziness. Pt BP stable at 144/66 O2
95% temp 98.9. Cardiology consulted via TT. No intervention recommended at this time, continue to monitor. Of note patient takes Clonidine 0.1mg, will place on hold for now.
--- NOTE | 2025-09-03 05:37 | PTCARENOTE ---
shampooer still alarming of heart rate in the 30s. patient started to sustain in the 30s for longer periods of time before going back up to the 50s. patient continues to be asymptomatic. COMPONENT ASSEMBLER SUPERVISOR notified. new order for EKG. EKG obtained.
results reported to COMPONENT ASSEMBLER SUPERVISOR. patient heart rate went down to 29. this RN asked if the COMPONENT ASSEMBLER SUPERVISOR could come assess the patient. COMPONENT ASSEMBLER SUPERVISOR at bedside. full set of vital signs obtained. see EMR for documentation. patient continues to be asymptomatic. clonidine held
by REYMUNDO. REYMUNDO informed this RN that we will continue to monitor. telemetry strips placed in chart. POC ongoing.
[2025-09-03] MEDS: NSS 1000 IV ×2 (05:51→15:33)
[2025-09-03 05:54] LABS: Urine Character Clear (Clear)
--- NOTE | 2025-09-03 07:34 | CON.CAR ---
Consultation
Consultation Request
Date/Time Consultation Requested: 09/03/2025, 0500
Date/Time Consultation Performed: 09/03/2025, 0650
Requesting Provider: Penelope Carlton
Performing Provider: Nan
Reason for Consultation: Bradycardia
Medical History
-
Chief Complaint: Carotid disease
History of Present Illness:
Patient is a very pleasant 80-year-old male with a past medical history significant for renal artery stenosis status post stent 2016 with dilation in 2017, AAA with endovascular stent 2017, CVA, hypertension, CKD stage IV, nonischemic
cardiomyopathy, nonobstructive coronary disease, peripheral artery disease with carotid artery stenosis sinus bradycardia, former tobacco use disorder who had presented initially for scheduled left carotid artery stenting however due to elevated
reduction in creatinine, procedure was postponed. Cardiology consulted due to bradycardia on telemetry monitoring. In discussion with patient, he reports overall feeling well. He denies any chest pain, shortness of breath, lightheadedness,
dizziness, near-syncope, syncope, PND, orthopnea, edema, palpitations, or weakness. Patient is a former smoker, no alcohol, no illicits. EKG had demonstrated sinus bradycardia with first-degree AV block with most recent EKG demonstrating sinus
bradycardia with second-degree type I AV block. Again, patient asymptomatic. In overnight hours, patient with evidence of second-degree type I AV block with intermittent 2-1 AV block. Review of telemetry prior to overnight hours did not
demonstrate this arrhythmia. In each of these episodes and in discussion with patient, he reports no associated symptoms. Patient is on clonidine for blood pressure as well as carvedilol. Patient underwent echocardiography during inpatient stay
which demonstrated an LVEF of 40-45% with grade 1 diastolic dysfunction, mildly dilated RV with normal RV systolic function without significant valvular disease. In review of patient's outside records from primary photographic equipment inspector, there is
documentation that patient's LVEF was 40% in 2020. Additionally, and discussed with patient, he states that he has known about sinus bradycardia and that his primary photographic equipment inspector had mentioned that he does not need pacemaker but could be something
'down the road'.
Past Medical History
Past Medical History: Other (See HPI)
Past Surgical History: Other (See HPI)
Social History
Tobacco: Former Smoker
Alcohol: None
Drug: None
Personal:
Living: With Family
Family History
Family History: Reviewed & Not Pertinent
Allergies / Home Medications
Allergy/AdvReac Type Severity Reaction Status Date / Time
yellow dye Allergy Rash-become Verified 09/02/25 17:02
red and hot
�Medication �Instructions �Recorded �Confirmed �Type
ascorbic acid (vitamin C) 500 mg 500 mg PO DAILY Supplement 06/25/24 09/02/25 History
tablet (Vitamin C)
atorvastatin 80 mg tablet 80 mg PO DAILY High Cholesterol 06/25/24 09/02/25 History
carvedilol 6.25 mg tablet 6.25 mg PO DAILY Blood Pressure 06/25/24 09/02/25 History
cholecalciferol (vitamin D3) 10 20 mcg PO DAILY Supplement 06/25/24 09/02/25 History
mcg (400 unit) tablet (Vitamin D3)
clopidogrel 75 mg tablet (Plavix) 75 mg PO DAILY Blood Clot 06/25/24 09/02/25 History
Prevention/Tx
eplerenone 25 mg tablet 25 mg PO DAILY Heart 06/25/24 09/02/25 History
Disease/Condition
ferrous sulfate 325 mg (65 mg 325 mg PO Q48H Supplement 06/25/24 09/02/25 History
iron) tablet (iron)
furosemide 80 mg tablet 80 mg PO DAILY Fluid 06/25/24 09/02/25 History
Retention/Swelling
hydralazine 100 mg tablet 100 mg PO BID Blood Pressure 06/25/24 09/02/25 History
isosorbide mononitrate 120 mg 120 mg PO BID Blood Pressure 06/25/24 09/02/25 History
tablet,extended release 24 hr
lutein 20 mg tablet 20 mg PO DAILY Supplement 06/25/24 09/02/25 History
clonidine HCl 0.1 mg tablet 0.1 mg PO HS 08/31/25 09/02/25 History
gabapentin 300 mg capsule 300 mg PO BID 08/31/25 09/02/25 History
pantoprazole 40 mg tablet,delayed 40 mg PO DAILY 08/31/25 09/02/25 History
release
potassium chloride 10 mEq 10 meq PO BID 08/31/25 09/02/25 History
capsule,extended release
spironolactone 25 mg tablet 25 mg PO DAILY 08/31/25 09/02/25 History
ezetimibe 10 mg tablet 10 mg PO DAILY 09/02/25 09/02/25 History
Review of Systems
-
History Source: Patient
Constitutional: No Symptoms
EENT: No Symptoms
Respiratory: No Symptoms
Cardiac: No Symptoms
Abdomen/GI: No Symptoms
: No Symptoms
Musculoskeletal: No Symptoms
Skin: No Symptoms
Neurological: No Symptoms
Endocrine: No Symptoms
Hematologic/Lymphatic: No Symptoms
Physical Exam
Vital Signs
Temp Pulse Resp BP Pulse Ox
98.9 F 50 16 142/65 95
09/03/25 04:38 09/03/25 04:38 09/03/25 04:38 09/03/25 05:28 09/03/25 04:38
Lab Results
09/02/25 12:01
Physical exam:
GENERAL: no acute distress
EYE: sclera anicteric
NECK: Supple, no JVD, no carotid bruit appreciated
ENT: normal nose, moist mucosal membranes
CARDIAC: Bradycardic rate, regular rhythm, +S1/S2, 1/6 holosystolic murmur; no rubs, or gallops
CHEST/PULMONARY: Normal effort, clear breath sounds
ABDOMEN: Soft, without focal tenderness or distention
NEUROLOGICAL: Alert and oriented x3
SKIN: Warm and dry, no rash
PSYCH: Normal and appropriate interaction.
Telemetry demonstrates sinus bradycardia with intermittent second-degree type I AV block and 2-1 AV block during overnight hours
Impression / Plan
-
Sack Cleaner: Dr. Que De Paz ([facility])
Impression:
Sinus bradycardia, asymptomatic
� Reported history by patient with primary
� Noted second-degree type I AV block and 2-1 AV block on telemetry monitoring during overnight hours; reviewed with patient, no reported symptoms
� On AV luther blocking agents (clonidine, carvedilol)
� Echocardiogram EF 40-45%, similar to prior reported echo
� No associated lightheadedness, dizziness, syncope; BP stable
Hypertension
Nonischemic cardiomyopathy
Chronic heart failure with mildly reduced ejection fraction, euvolemic on exam
KELLY on CKD 4
History of CVA
Carotid artery stenosis
AAA status post intervention 2017
Renal artery stenosis status post intervention, 2015, 2016
Echo 12/14/2020: LVEF 40% with global hypokinesis, moderate LVH, severe LA dilation, mild MR
Echo 09/02/2025: LVEF 40-45%, global hypokinesis, G1 DD, mildly dilated RV normal function, mild MR
MPI stress test, 03/16/2019: Anterolateral scar without ischemia, EF 47%
Cardiac catheterization, 2017: Left main without disease, LAD less than 40% stenosis, LCx less than 30% stenosis, RCA dominant, less than 40% stenosis, LVEDP 22 mmHg, PA 45/11, CI 3.47 L/min/m2
Recommendations:
� Hold AV luther blocking agents and monitor on telemetry
� Patient asymptomatic with longstanding history of sinus bradycardia with intermittent second-degree type I AV block and rare 2-1 AV block noted on manager performance improvement during overnight hours. EKG from 2023 demonstrates sinus bradycardia first-degree
block given patient currently asymptomatic and on medical therapy that could be reversible, no indication at this time for pacemaker.
� Workup per nephrology regarding KELLY
� K greater than 4, magnesium greater than 2
� Will follow along
Data Reviewed
-
EKG: Tracing Personally Visualized and interpreted
Labs: Labs Reviewed by me
Old Records: Reviewed
[2025-09-03 07:50] LABS: Urine Red Blood Cell 0-2 /HPF (0-2); Urine Squamous Cell 0-2 /LPF (Few); Urine Urothelial Cell 0-2 /LPF (FEW); Urine White Cell 0-2 /HPF (0-5)
[2025-09-03] MEDS: ALDACTONE 25 MG PO (09:30)
[2025-09-03] MEDS: LIPITOR 80 MG PO (09:30)
[2025-09-03] MEDS: IMDUR (EXTENDED RELEASE) 120 MG PO ×2 (09:30→20:58)
[2025-09-03] MEDS: NEURONTIN 300 MG PO ×2 (09:30→20:58)
[2025-09-03] MEDS: PROTONIX 40 MG PO (09:30)
[2025-09-03] MEDS: ZETIA 10 MG PO (09:31)
[2025-09-03] MEDS: APRESOLINE 100 MG PO ×2 (09:31→20:58)
[2025-09-03] MEDS: KCL 10 MEQ PO ×2 (09:31→20:58)
[2025-09-03] MEDS: VITAMIN D3 (cholecalciferol) 20 MCG PO (09:31)
[2025-09-03] MEDS: VITAMIN C 500 MG PO (09:31)
[2025-09-03] MEDS: LASIX 80 MG PO (09:31)
[2025-09-03] MEDS: PLAVIX 75 MG PO (09:32)
[2025-09-03 10:54] LABS: Blood Urea Nitrogen 34 mg/dl (9-20); Calcium 9.1 mg/dl (8.4-10.2); Carbon Dioxide 27 mmol/L (22-30); Chloride 105 mmol/L (98-107); Estimated Creatinine Clearance 17 ml/min; Glucose 75 mg/dl (70-99); Magnesium 1.9 mg/dl (1.6-2.3); Potassium 4.0 mmol/L (3.5-5.1); Sodium 136 mmol/L (135-145); eGFR 21.20
--- NOTE | 2025-09-03 13:01 | W.PN.NEPH.PH ---
Today's Communication / Plan
-
follow BMP
Assessment/Plan
-
Assessment
CKD4, progressive
Left renal artery stenosis, atrophic left kidney
Peripheral vascular disease
Carotid artery stenosis, right endarterectomy
infrarenal abdominal aortic stent
Hypertension
Heart failure reduced ejection fraction
? IgM MGUS
Plan
Follow BMP
Renal ultrasound. If left kidney is atrophic, whether or not it was stented (patient disputes this fact) would be moot
Check electrophoresis
He also certainly could have had worsening renal function after his CTA which was performed as a stroke alert at an outside hospital
So long as renal function is relatively stable ~2.7 he can have the procedure with IVF
-
-
Date of Service: September 03, 2025
CC / HPI / ROS
-
Chief Complaint:
KELLY
History of Present Illness:
KELLY/Cr down to 2.9 with IVF
BP stable high
K normal
Review of Systems:
no CP/SOB
Labs
-
Labs:
WBC 11.4 10^3/uL (4.8-10.8) H 09/02/25 12:01
RBC 3.70 10^6/uL (4.70-6.10) L 09/02/25 12:01
Hgb 11.3 g/dL (13.0-18.0) L 09/02/25 12:01
Hct 34.9 % (39.0-52.0) L 09/02/25 12:01
Plt Count 156 10^3/uL (130-400) 09/02/25 12:01
Sodium 136 mmol/L (135-145) 09/03/25 07:44
Potassium 4.0 mmol/L (3.5-5.1) 09/03/25 07:44
Chloride 105 mmol/L (98-107) 09/03/25 07:44
Carbon Dioxide 27 mmol/L (22-30) 09/03/25 07:44
BUN 34 mg/dl (9-20) H 09/03/25 07:44
Creatinine 2.9 mg/dL (0.7-1.3) H 09/03/25 07:44
eGFR 21.20 09/03/25 07:44
Glucose 75 mg/dl (70-99) 09/03/25 07:44
Calcium 9.1 mg/dl (8.4-10.2) 09/03/25 07:44
Phosphorus 3.5 mg/dl (2.5-4.5) 09/03/25 07:44
Physical Exam
-
Vital Signs:
Vital Signs
Temp Pulse Resp BP Pulse Ox
97.4 F 60 18 160/63 96
09/03/25 12:16 09/03/25 12:16 09/03/25 12:16 09/03/25 12:16 09/03/25 12:16
Cardiovascular:: Regular rate and rhythm
Respiratory:: Bilateral: Coarse
Lung Excursion:: Normal
Abdomen:: Nontender and Soft
Bowel Sounds:: Normal
Extremity Edema:: +1: Bilateral:
--- NOTE | 2025-09-03 14:55 | W.PN.UPDATE ---
Update Note
Progress Note Update
Awaiting transfemoral carotid artery stent
Cr trending down
Nephrology feel safe for intervention with IVF once Cr at baseline
Patient without complaints
o/e smile equal, tongue midline, strength 5/5 in all 4, speech fluid
Plan:
TF carotid stent next week
--- NOTE | 2025-09-03 15:51 | CM ---
patient seen at bedside
IA completed
Awaiting transfemoral carotid artery stent
PMH: renal artery stenosis status post stent 2016 with dilation in 2017, AAA with endovascular stent 2017, CVA, hypertension, CKD stage IV, nonischemic cardiomyopathy, nonobstructive coronary disease, peripheral artery disease with carotid artery
stenosis sinus bradycardia
Patient lives with daughter in mobile home, 3 gregg
PLOF: independent with cane
DME: cane
denies VN, denies Rehab
PCP: Dr. De Paz
PHARMACY: [facility] [place]
PLAN: TBD, CM to follow hospital progress post-op for needs
[2025-09-03 17:06] LABS: Hepatitis C Antibody Negative (Negative)
[2025-09-03] MEDS: FEOSOL 325 MG PO (20:58)
[2025-09-04] MEDS: HEPARIN 5000 UNITS SC ×4 (01:04→23:19)
[2025-09-04 03:00] VITALS: BP 164/71
[2025-09-04] MEDS: NSS 1000 IV ×2 (05:25→12:59)
[2025-09-04 06:00] VITALS: BMI 23.3
[2025-09-04 07:00] VITALS: BP 173/67
[2025-09-04 07:49] LABS: Blood Urea Nitrogen 31 mg/dl (9-20); Calcium 9.0 mg/dl (8.4-10.2); Carbon Dioxide 25 mmol/L (22-30); Chloride 106 mmol/L (98-107); Estimated Creatinine Clearance 18 ml/min; Glucose 83 mg/dl (70-99); Potassium 4.0 mmol/L (3.5-5.1); Sodium 138 mmol/L (135-145); eGFR 22.12
--- NOTE | 2025-09-04 08:18 | W.PN.UPDATE ---
Update Note
Progress Note Update
Vascular surgery progress note:
Awaiting TFem Carotid stent
Cr downtrending - 2.8 today
Nephrology ok with contrast load once Cr at baseline with IVF
Plan:
No change today
Continue IVF
Likely Tfem stent this week
[2025-09-04] MEDS: APRESOLINE 100 MG PO ×2 (08:50→20:51)
[2025-09-04] MEDS: PROTONIX 40 MG PO (08:50)
[2025-09-04] MEDS: LIPITOR 80 MG PO (08:50)
[2025-09-04] MEDS: NEURONTIN 300 MG PO ×2 (08:50→20:50)
[2025-09-04] MEDS: ALDACTONE 25 MG PO (08:51)
[2025-09-04] MEDS: PLAVIX 75 MG PO (08:51)
[2025-09-04] MEDS: VITAMIN D3 (cholecalciferol) 20 MCG PO (08:51)
[2025-09-04] MEDS: VITAMIN C 500 MG PO (08:51)
[2025-09-04] MEDS: LASIX 80 MG PO (08:51)
[2025-09-04] MEDS: ZETIA 10 MG PO (08:51)
[2025-09-04] MEDS: KCL 10 MEQ PO ×2 (08:51→20:51)
[2025-09-04] MEDS: IMDUR (EXTENDED RELEASE) 120 MG PO ×2 (08:52→20:50)
[2025-09-04 11:00] VITALS: BP 194/71
--- NOTE | 2025-09-04 12:15 | W.PN.NEPH.PH ---
Today's Communication / Plan
-
Reduce IV fluid
Assessment/Plan
-
Assessment
CKD4, progressive
Left renal artery stenosis, atrophic left kidney
Peripheral vascular disease
Carotid artery stenosis, right endarterectomy
infrarenal abdominal aortic stent
Hypertension
Heart failure reduced ejection fraction
? IgM MGUS
Plan
Follow BMP
Await renal ultrasound. If left kidney is atrophic, whether or not it was stented (patient disputes this fact) would be moot
Check electrophoresis
He also certainly could have had worsening renal function after his CTA which was performed as a stroke alert at an outside hospital
So long as renal function is relatively stable ~2.7 he can have the procedure with IVF
Reduce IV fluid rate
-
-
Date of Service: September 04, 2025
CC / HPI / ROS
-
Chief Complaint:
KELLY
History of Present Illness:
KELLY/Cr down to 2.8 with IVF
BP stable high
K normal
Review of Systems:
no CP/SOB
Labs
-
Labs:
WBC 11.4 10^3/uL (4.8-10.8) H 09/02/25 12:01
RBC 3.70 10^6/uL (4.70-6.10) L 09/02/25 12:01
Hgb 11.3 g/dL (13.0-18.0) L 09/02/25 12:01
Hct 34.9 % (39.0-52.0) L 09/02/25 12:01
Plt Count 156 10^3/uL (130-400) 09/02/25 12:01
Sodium 138 mmol/L (135-145) 09/04/25 06:47
Potassium 4.0 mmol/L (3.5-5.1) 09/04/25 06:47
Chloride 106 mmol/L (98-107) 09/04/25 06:47
Carbon Dioxide 25 mmol/L (22-30) 09/04/25 06:47
BUN 31 mg/dl (9-20) H 09/04/25 06:47
Creatinine 2.8 mg/dL (0.7-1.3) H 09/04/25 06:47
eGFR 22.12 09/04/25 06:47
Glucose 83 mg/dl (70-99) 09/04/25 06:47
Calcium 9.0 mg/dl (8.4-10.2) 09/04/25 06:47
Phosphorus 3.5 mg/dl (2.5-4.5) 09/03/25 07:44
Physical Exam
-
Vital Signs:
Vital Signs
Temp Pulse Resp BP Pulse Ox
98.1 F 57 18 173/67 94
09/04/25 07:00 09/04/25 07:00 09/04/25 07:00 09/04/25 07:00 09/04/25 07:00
Cardiovascular:: Regular rate and rhythm
Respiratory:: Bilateral: Coarse
Lung Excursion:: Normal
Abdomen:: Nontender and Soft
Bowel Sounds:: Normal
Extremity Edema:: None: Bilateral:
--- NOTE | 2025-09-04 13:51 | W.PN.CARDCBS ---
Today's Communication / Plan
-
Continues to demonstrate periods of type I second-degree AV block without symptomatic bradycardia. No indication for pacing. No contraindication to proceed with vascular surgery.
Impression / Plan
-
Spot Welder: Dr. Que De Paz ([facility])
Impression:
Sinus bradycardia, asymptomatic
� Reported history by patient with primary
� Noted second-degree type I AV block and 2-1 AV block on telemetry monitoring during overnight hours; reviewed with patient, no reported symptoms
� On AV luther blocking agents (clonidine, carvedilol)
� Echocardiogram EF 40-45%, similar to prior reported echo
� No associated lightheadedness, dizziness, syncope; BP stable
Hypertension
Nonischemic cardiomyopathy
Chronic heart failure with mildly reduced ejection fraction, euvolemic on exam
KELLY on CKD 4
History of CVA
Carotid artery stenosis
AAA status post intervention 2017
Renal artery stenosis status post intervention, 2016, 2017
Echo 12/14/2020: LVEF 40% with global hypokinesis, moderate LVH, severe LA dilation, mild MR
Echo 09/02/2025: LVEF 40-45%, global hypokinesis, G1 DD, mildly dilated RV normal function, mild MR
MPI stress test, 03/16/2019: Anterolateral scar without ischemia, EF 47%
Cardiac catheterization, 2017: Left main without disease, LAD less than 40% stenosis, LCx less than 30% stenosis, RCA dominant, less than 40% stenosis, LVEDP 22 mmHg, PA 45/11, CI 3.47 L/min/m2
Recommendations:
Eventually for carotid endarterectomy
� Holding AV luther blocking agents and monitor on telemetry
� Patient asymptomatic with longstanding history of sinus bradycardia with intermittent second-degree type I AV block and rare 2-1 AV block noted on alarm security or surveillance monitor during overnight hours. EKG from 2023 demonstrates sinus bradycardia first-degree
block given patient currently asymptomatic and on medical therapy that could be reversible, no indication at this time for pacemaker. No contraindication to proceeding with vascular surgery. With anesthesia and with surgery would not be surprised
if he demonstrates more AV block.
� CKD4, progressive with KELLY, nephrology managing
� K greater than 4, magnesium greater than 2
� Will follow along
Progress Note - Spot Welder
Subjective
Date of Service: September 04, 2025
No chest pain or shortness of breath.
Objective
Labs:
09/02/25 12:01
09/04/25 06:47
Labs
Hgb 11.3 g/dL (13.0-18.0) L 09/02/25 12:01
Hct 34.9 % (39.0-52.0) L 09/02/25 12:01
Plt Count 156 10^3/uL (130-400) 09/02/25 12:01
PT 14.6 Sec (11.4-14.6) 09/02/25 12:01
INR 1.12 09/02/25 12:01
APTT 31.4 Sec (23.4-35.0) 09/02/25 12:01
Sodium 138 mmol/L (135-145) 09/04/25 06:47
Potassium 4.0 mmol/L (3.5-5.1) 09/04/25 06:47
BUN 31 mg/dl (9-20) H 09/04/25 06:47
Creatinine 2.8 mg/dL (0.7-1.3) H 09/04/25 06:47
Glucose 83 mg/dl (70-99) 09/04/25 06:47
Vital Signs and I&O:
Vital Signs
Temp Pulse Resp BP Pulse Ox
98.2 F 58 20 194/71 96
09/04/25 11:00 09/04/25 11:00 09/04/25 11:00 09/04/25 11:00 09/04/25 11:00
Vital Signs
Temp Pulse Resp BP Pulse Ox
98.2 F 58 20 194/71 96
09/04/25 11:00 09/04/25 11:00 09/04/25 11:00 09/04/25 11:00 09/04/25 11:00
Intake & Output
09/02/25 09/03/25 09/04/25 09/05/25
06:59 06:59 06:59 06:59
Intake Total 2510 / 2510 180 / 180
Output Total 620 / 620 950 / 950
Balance 1890 / 1890 -770 / -770
Physical Exam
Physical Exam
CARDIAC: Bradycardic rate, regular rhythm, +S1/S2, 1/6 holosystolic murmur; no rubs, or gallops
CHEST/PULMONARY: Normal effort, clear breath sounds
ABDOMEN: Soft, without focal tenderness or distention
NEUROLOGICAL: Alert and oriented x3
[2025-09-04 15:30] VITALS: BP 193/74
--- NOTE | 2025-09-04 16:57 | CON.HOSP ---
Consultation
-
Date/Time Consultation Requested: 09/04/25 1653
Requesting Provider: Dr. Laura Roberts
Performing Provider: Dr. Jim Singh
Reason for Consultation: elevated BP
Family Physician
-
Family Physician: NOT KNOW UNKNOWN - PT DOES
Chief Complaint
-
Elevated BP
History of Present Illness
80 y/o M with PMHx:
Essential hypertension
Asymptomatic sinus bradycardia with Mobitz I
NICM
Chronic HFmrEF
CKD4, progressive
CVA
Carotid artery stenosis s/p R CEA
AAA status post intervention 2017 (infrarenal abdominal aortic stent)
Renal artery stenosis status post intervention, 2015, 2017
PAD
? IgM MGUS
who we've been asked to see in c/s for SBP 190s. Pt is planned for TFem Carotid stent this week. Patient currently denies acute complaints. Denies chest pain, shortness of breath, palpitations, nausea, vomiting, abdominal pain, headache.
Medical History
Past Medical History
Past Medical History: Reports Other (as per HPI)
Past Surgical History: Reports Other (as per HPI, otherwise noncontributory)
Social History
Tobacco: Smoker
Alcohol: None
Drug: None
Family History
Family History: Reviewed & Not Pertinent
Allergies / Home Medications
Allergies reflects when Allergies were last updated in [employer].
Home Medications with original date entered in [employer]
Allergy/Medication List:
Allergies
Allergy/AdvReac Type Severity Reaction Status Date / Time
yellow dye Allergy Rash-become Verified 09/02/25 17:02
red and hot
Home Medications
ascorbic acid (vitamin C) 500 mg tablet (Vitamin C) 500 mg PO DAILY Supplement 06/25/24
atorvastatin 80 mg tablet 80 mg PO DAILY High Cholesterol 06/25/24
carvedilol 6.25 mg tablet 6.25 mg PO DAILY Blood Pressure 06/25/24
cholecalciferol (vitamin D3) 10 mcg (400 unit) tablet (Vitamin D3) 20 mcg PO DAILY Supplement 06/25/24
clopidogrel 75 mg tablet (Plavix) 75 mg PO DAILY Blood Clot Prevention/Tx 06/25/24
eplerenone 25 mg tablet 25 mg PO DAILY Heart Disease/Condition 06/25/24
ferrous sulfate 325 mg (65 mg iron) tablet (iron) 325 mg PO Q48H Supplement 06/25/24
furosemide 80 mg tablet 80 mg PO DAILY Fluid Retention/Swelling 06/25/24
hydralazine 100 mg tablet 100 mg PO BID Blood Pressure 06/25/24
isosorbide mononitrate 120 mg tablet,extended release 24 hr 120 mg PO BID Blood Pressure 06/25/24
lutein 20 mg tablet 20 mg PO DAILY Supplement 06/25/24
clonidine HCl 0.1 mg tablet 0.1 mg PO HS Blood Pressure 08/31/25
gabapentin 300 mg capsule 300 mg PO BID Neurological Condition 08/31/25
pantoprazole 40 mg tablet,delayed release 40 mg PO DAILY 08/31/25
potassium chloride 10 mEq capsule,extended release 10 meq PO BID Low potassium 08/31/25
spironolactone 25 mg tablet 25 mg PO DAILY Blood Pressure 08/31/25
ezetimibe 10 mg tablet 10 mg PO DAILY High Cholesterol 09/02/25
Review of Systems
-
History Source: Patient
A 12 point Review of Systems was completed except as noted: Yes
Physical Exam
Vital Signs
Vital Signs
Temp Pulse Resp BP Pulse Ox
98.2 F 66 17 193/74 97
09/04/25 15:30 09/04/25 15:30 09/04/25 15:30 09/04/25 15:30 09/04/25 15:30
Physical Exam
General: Other (.)
Laboratory Results
-
Laboratory Results
09/02/25 12:01
09/04/25 06:47
PT 14.6 Sec (11.4-14.6) 09/02/25 12:01
INR 1.12 09/02/25 12:01
APTT 31.4 Sec (23.4-35.0) 09/02/25 12:01
Impression / Plan
-
Gen: NAD, AAOx3.
Eyes: EOMI, PERRLA, no scleral icterus.
Neck: supple.
CV: RRR, +S1/S2, no m/r/g.
Resp: CTAB, no rales, wheezes, or rhonchi.
Abd: +BS, soft, NT, ND
Skin: No rashes.
Neuro: CN 2-12 intact, non-focal.
Psych: Normal mood and affect.
08/15 Carotid U/S:
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 Carotid velocity measurements are consistent with less than 50% internal carotid artery
stenosis. Vertebral artery flow is antegrade. This area was identified on the prior outside hospital examination from August 20, 2024 but was dictated as a lymph node measuring 1.8 cm and maximum diameter.
LEFT: The distal common carotid artery is enlarged at 2.6 cm and contains mural thrombus. The proximal and mid common carotid artery are within normal limits. The diameter of the internal carotid artery appears to be within normal limits. Carotid
velocity measurements are consistent with less than 50% internal carotid artery stenosis. Vertebral artery flow is antegrade. The distal common carotid artery findings are new compared to the prior examination.
Essential HTN with hypertensive urgency:
-cardiology consult reviewed. With asymptomatic sinus bradycardia with Mobitz I will avoid adding back Coreg at this time
-cont Aldactone/Imdur
-resume Clonidine 0.1mg HS (concerned that pt having rebound HTN). Clonidine can cause indirect (central) AV luther blocking but concerns for hypertensive urgency with SBP 190s outweighs this risk at this moment especially with such a low clonidine
dose.
-IV Hydralazine PRN for now. Monitor for response. On 09/05 will assess how many doses of IV hydralazine the pt has received and, when taking into account the timing of TFem carotid stent and BP trend, will potentially add additional PO
antihypertensives.
Other problems:
Chronic HFmrEF/NICM
CKD4, progressive: currently on IVFs, renal following
h/o CVA: cont Plavix/statin
Carotid artery stenosis s/p R CEA: cont Plavix/statin
AAA status post intervention 2017 (infrarenal abdominal aortic stent)
Renal artery stenosis status post intervention, 2015, 2016
PAD: cont Plavix/statin
? IgM MGUS
Thank you for the courtesy of this consultation.
[2025-09-04] MEDS: APRESOLINE 10 MG IV (17:14)
[2025-09-04 19:42] VITALS: BP 174/68
[2025-09-04] MEDS: CATAPRES 0.1 MG PO (22:44)
[2025-09-04 22:53] VITALS: BP 153/55
[2025-09-05 02:41] VITALS: BP 162/68
[2025-09-05 03:00] VITALS: BP 154/66
[2025-09-05 05:17] VITALS: BMI 23.5
[2025-09-05 07:31] VITALS: BP 172/74
[2025-09-05] MEDS: ZETIA 10 MG PO (07:40)
[2025-09-05] MEDS: NEURONTIN 300 MG PO (07:40)
[2025-09-05] MEDS: PLAVIX 75 MG PO (07:40)
[2025-09-05] MEDS: APRESOLINE 100 MG PO (07:40)
[2025-09-05] MEDS: PROTONIX 40 MG PO (07:40)
[2025-09-05] MEDS: VITAMIN C 500 MG PO (07:40)
[2025-09-05] MEDS: LIPITOR 80 MG PO (07:40)
[2025-09-05] MEDS: VITAMIN D3 (cholecalciferol) 20 MCG PO (07:40)
[2025-09-05] MEDS: IMDUR (EXTENDED RELEASE) 120 MG PO (07:40)
[2025-09-05] MEDS: HEPARIN 5000 UNITS SC (07:41)
[2025-09-05] MEDS: ALDACTONE 25 MG PO (07:41)
[2025-09-05] MEDS: KCL 10 MEQ PO (07:41)
[2025-09-05] MEDS: LASIX 80 MG PO (07:41)
--- NOTE | 2025-09-05 07:44 | W.PN.HOSP.TC ---
Today's Communication/Plan
-
see plan
Assessment / Plan
Assessment / Plan
Gen: NAD, AAOx3.
Eyes: EOMI, PERRLA, no scleral icterus.
Neck: supple.
CV: remains RRR, +S1/S2, no m/r/g.
Resp: CTAB anteriorly, no rales, wheezes, or rhonchi.
Abd: remains +BS, soft, NT, ND
Skin: No rashes.
Neuro: CN 2-12 intact, non-focal.
Psych: Normal mood and affect.
08/15 Carotid U/S:
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 Carotid velocity measurements are consistent with less than 50% internal carotid artery
stenosis. Vertebral artery flow is antegrade. This area was identified on the prior outside hospital examination from August 20, 2024 but was dictated as a lymph node measuring 1.8 cm and maximum diameter.
LEFT: The distal common carotid artery is enlarged at 2.6 cm and contains mural thrombus. The proximal and mid common carotid artery are within normal limits. The diameter of the internal carotid artery appears to be within normal limits. Carotid
velocity measurements are consistent with less than 50% internal carotid artery stenosis. Vertebral artery flow is antegrade. The distal common carotid artery findings are new compared to the prior examination.
Essential HTN with hypertensive urgency:
-cardiology consult reviewed. With asymptomatic sinus bradycardia with Mobitz I will avoid adding back Coreg at this time.
-cont Aldactone/Imdur/Clonidine/hydralazine
-start Procardia XL 30mg daily
-IV Hydralazine PRN
-discussed with cardiology
Chronic HFmrEF/NICM:
-cards following
-currently on both IVFs and Lasix, stop lasix (discussed with renal)
-no BB with bradycardia
CKD4, progressive:
-currently on IVFs and lasix, stop Lasix
-worsening, Cr now 3.1
-renal following
Other problems:
h/o CVA: cont Plavix/statin
Carotid artery stenosis s/p R CEA: cont Plavix/statin
AAA status post intervention 2017 (infrarenal abdominal aortic stent)
Renal artery stenosis status post intervention, 2016, 2017
PAD: cont Plavix/statin
? IgM MGUS
Thank you for the courtesy of this consultation.
Anticipated Discharge: > 48 hours
Subjective/Interval History
-
Date of Service: September 05, 2025
Denies CP/SOB.
Objective Data
-
Labs:
Laboratory Results
09/05/25
07:14
Sodium Pending
Potassium Pending
Chloride Pending
Carbon Dioxide Pending
BUN Pending
Creatinine Pending
Glucose Pending
Calcium Pending
Vital Signs:
Vital Signs
Temp Pulse Resp BP Pulse Ox
98.5 F 58 16 172/74 94
09/05/25 07:31 09/05/25 07:31 09/05/25 07:31 09/05/25 07:31 09/05/25 07:31
I&O
09/04/25 09/05/25 09/06/25
06:59 06:59 06:59
Intake Total 2510 / 2510 1200 / 1200
Output Total 620 / 620 2550 / 2550
Balance 1890 / 1890 -1350 / -1350
--- NOTE | 2025-09-05 07:55 | W.PN.UPDATE ---
Addendum entered and electronically signed by REYMUNDO Stevens 09/05/25 14:34:
Patient with increased creatinine today at 3.1, given chronic kidney disease and unclear status of baseline creatinine coupled with bradycardia and hypertension management felt best to continue to optimize patient in the outpatient setting prior to
proceeding with procedure. Reviewed discharge medications with all consultants including nephrology, hospitalist, and cardiology all agree with discharge medication regimen. Also all consultants agreed the patient is stable for discharge, reviewed
plan with inpatient attending Dr. Connor Santos M.D. and primary surgeon Dr. Alexander Pastrnaa III. Will attempt to reschedule surgery for 09/13/2025 pending outpatient blood work.
Addendum entered and electronically signed by Connor Santos MD 09/05/25 14:26:
Seen and examined with NATALYA Lerma. Agree with findings as noted below.
Original Note:
Update Note
Progress Note Update
Pt seen at bedside this am with Dr Santos. Pt reports no complaints.No events overnight.
Voiding to urinal. IVF running. AM BMP pending.
Appreciate nephrology recommendations
TF-OZZY tomorrow pending stability of creatinine
[2025-09-05 08:13] LABS: Blood Urea Nitrogen 31 mg/dl (9-20); Calcium 9.0 mg/dl (8.4-10.2); Carbon Dioxide 27 mmol/L (22-30); Chloride 107 mmol/L (98-107); Estimated Creatinine Clearance 16 ml/min; Glucose 82 mg/dl (70-99); Potassium 4.3 mmol/L (3.5-5.1); Sodium 138 mmol/L (135-145); eGFR 19.57
[2025-09-05] MEDS: PROCARDIA XL (EXTENDED RELEASE) 30 MG PO (09:14)
--- NOTE | 2025-09-05 09:17 | W.PN.CARDCBS ---
Addendum entered and electronically signed by Dov Ibrahim MD 09/05/25 13:19:
I saw and examined the patient.
The [employer] or PA's note was reviewed and I agree with the note.
Comment: General: Well developed, well nourished in NAD.
Neck: Supple, no JVD, HJR, carotids +2 B/L, no bruits bilaterally.
Heart: Non displaced PMI, RRR, no murmurs, No S3, S4, no rubs.
Lungs: Scattered rhonchi
Extremities: No clubbing, cyanosis or edema bilaterally.
Neuro: Grossly nonfocal, awake, alert and oriented x3.
Continues with Alvarez Lynch. No treatment needed is asymptomatic. Stable cardiology status for discharge and for carotid stent to be done as an outpatient. Discussed with vascular surgery
Original Note:
Today's Communication / Plan
-
Avoid AV luther blocking agents if possible
Management of KELLY and hypertension per hospitalist and nephrology
Stable asymptomatic bradycardia/heart block. No indication for pacemaker at this time. Continue to monitor on telemetry
Interval OR for femoral carotid stent on current stable
Impression / Plan
-
Global Implementation Manager: Dr. Que De Paz ([facility])
Impression:
Presented for elective transfemoral left carotid stent 08/03/2025. Procedure postponed secondary to KELLY on CKD, creatinine on admission 3.2
KELLY on CKD
Asymptomatic bradycardia with second-degree type I heart block
Hypertension
Nonischemic cardiomyopathy
Chronic heart failure with mildly reduced ejection fraction, euvolemic on exam
KELLY on CKD 4
History of CVA
Carotid artery stenosis
AAA status post intervention 2016
Renal artery stenosis status post intervention, 2016, 2017
Echo 12/14/2020: LVEF 40% with global hypokinesis, moderate LVH, severe LA dilation, mild MR
Echo 09/02/2025: LVEF 40-45%, global hypokinesis, G1 DD, mildly dilated RV normal function, mild MR
MPI stress test, 03/16/2019: Anterolateral scar without ischemia, EF 47%
Cardiac catheterization, 2017: Left main without disease, LAD less than 40% stenosis, LCx less than 30% stenosis, RCA dominant, less than 40% stenosis, LVEDP 22 mmHg, PA 45/11, CI 3.47 L/min/m2
Recommendations:
Presented for elective transfemoral left carotid stent 08/03/2025. Procedure postponed secondary to KELLY on CKD, creatinine on admission 3.2. Timing of surgery to be determined
� CKD4, progressive with KELLY, nephrology managing. Making urine
- Creatinine currently 3.1.
- Renal ultrasound demonstrates severe left renal atrophy.
- Electrophoresis ordered/pending
- Continue to avoid nephrotoxic agents
Patient has asymptomatic with longstanding history of sinus bradycardia with intermittent second-degree type I AV block and rare 2-1 AV block noted on athletic monitor during overnight hours. EKG from 2023 demonstrates sinus bradycardia
first-degree block
- On AV luther blocking agents as outpatient (clonidine, carvedilol as outpatient). Both agents initially placed on hold. However hospitalist has resumed low-dose clonidine 0.1 mg 09/04/25 due to concerns of rebound hypertension
- Continue to hold beta-cachorro and would avoid AV luther blocking agents if possible
- Given patient currently asymptomatic and on medical therapy that could be reversible, no indication at this time for pacemaker. No contraindication to proceeding with vascular surgery. With anesthesia and with surgery would not be surprised if
he demonstrates more AV block.
� Echocardiogram EF 40-45%, similar to prior reported echo
Longstanding history of hypertension.
-Continue hydralazine, isosorbide.
- Clonidine resumed 09/04/2025.
- Hospitalist added Procardia 30 mg 09/05
- Carvedilol remains on hold given bradycardia and heart block.
- Given KELLY on CKD consider holding Aldactone but would defer to nephrology.
HPI 09/03/2025:
History of Present Illness:
Patient is a very pleasant 80-year-old male with a past medical history significant for renal artery stenosis status post stent 2016 with dilation in 2017, AAA with endovascular stent 2017, CVA, hypertension, CKD stage IV, nonischemic
cardiomyopathy, nonobstructive coronary disease, peripheral artery disease with carotid artery stenosis sinus bradycardia, former tobacco use disorder who had presented initially for scheduled left carotid artery stenting however due to elevated
reduction in creatinine, procedure was postponed. Cardiology consulted due to bradycardia on telemetry monitoring. In discussion with patient, he reports overall feeling well. He denies any chest pain, shortness of breath, lightheadedness,
dizziness, near-syncope, syncope, PND, orthopnea, edema, palpitations, or weakness. Patient is a former smoker, no alcohol, no illicits. EKG had demonstrated sinus bradycardia with first-degree AV block with most recent EKG demonstrating sinus
bradycardia with second-degree type I AV block. Again, patient asymptomatic. In overnight hours, patient with evidence of second-degree type I AV block with intermittent 2-1 AV block. Review of telemetry prior to overnight hours did not
demonstrate this arrhythmia. In each of these episodes and in discussion with patient, he reports no associated symptoms. Patient is on clonidine for blood pressure as well as carvedilol. Patient underwent echocardiography during inpatient stay
which demonstrated an LVEF of 40-45% with grade 1 diastolic dysfunction, mildly dilated RV with normal RV systolic function without significant valvular disease. In review of patient's outside records from primary side panel padder, there is
documentation that patient's LVEF was 40% in 2020. Additionally, and discussed with patient, he states that he has known about sinus bradycardia and that his primary side panel padder had mentioned that he does not need pacemaker but could be something
'down the road'.
Progress Note - Global Implementation Manager
Subjective
Date of Service: September 05, 2025
Patient seen and examined. Patient ambulating without chest pain, shortness of breath, dizziness lightheadedness or near syncope. Offers no specific cardiac complaints.
Objective
Labs:
09/02/25 12:01
09/05/25 07:14
Labs
Hgb 11.3 g/dL (13.0-18.0) L 09/02/25 12:01
Hct 34.9 % (39.0-52.0) L 09/02/25 12:01
Plt Count 156 10^3/uL (130-400) 09/02/25 12:01
PT 14.6 Sec (11.4-14.6) 09/02/25 12:01
INR 1.12 09/02/25 12:01
APTT 31.4 Sec (23.4-35.0) 09/02/25 12:01
Sodium 138 mmol/L (135-145) 09/05/25 07:14
Potassium 4.3 mmol/L (3.5-5.1) 09/05/25 07:14
BUN 31 mg/dl (9-20) H 09/05/25 07:14
Creatinine 3.1 mg/dL (0.7-1.3) H 09/05/25 07:14
Glucose 82 mg/dl (70-99) 09/05/25 07:14
Vital Signs and I&O:
Vital Signs
Temp Pulse Resp BP Pulse Ox
98.5 F 56 16 150/68 94
09/05/25 07:31 09/05/25 09:14 09/05/25 07:31 09/05/25 09:14 09/05/25 07:31
Vital Signs
Temp Pulse Resp BP Pulse Ox
98.5 F 56 16 150/68 94
09/05/25 07:31 09/05/25 09:14 09/05/25 07:31 09/05/25 09:14 09/05/25 07:31
Intake & Output
09/03/25 09/04/25 09/05/25 09/06/25
06:59 06:59 06:59 06:59
Intake Total 2510 / 2510 1200 / 1200
Output Total 620 / 620 2550 / 2550 900 / 900
Balance 1890 / 1890 -1350 / -1350 -900 / -900
Physical Exam
Physical Exam
GEN: No distress, awake, Ox3, sitting in bed
HEENT: supple, anicteric, mmm
LUNGS: CTA, no wheezes/rales
CV: Reg or bradycardic, S1/S2, 1/6 syst murmur
ABD: soft, BS+, NT/ND
EXT: No edema, clubbing or cyanosis
NEURO: Gross non-focal
SKIN: No rash, warm, dry, pink
--- NOTE | 2025-09-05 09:49 | CM ---
Addendum entered by Za Lambert 09/05/25 14:59:
patient scheduled for procedure 09/13 per note
discharge today
IMM explained & signed. in chart
PLAN; Home, no needs
sister to transport
Original Note:
chart reviewed
note per vascular - TF-OZZY tomorrow pending stability of creatinine
PLAN: anticipate home, CM to watch for VN needs post-op
[2025-09-05 11:22] VITALS: BP 109/53
--- NOTE | 2025-09-05 11:50 | W.PN.NEPH.PH ---
Today's Communication / Plan
-
Continue IV fluids but okay for discharge from renal standpoint
Assessment/Plan
-
Assessment
CKD4, progressive
Left renal artery stenosis, atrophic left kidney
Peripheral vascular disease
Carotid artery stenosis, right endarterectomy
infrarenal abdominal aortic stent
Hypertension
Heart failure reduced ejection fraction
? IgM MGUS
Plan
Follow BMP
left kidney is atrophic, whether or not it was stented (patient disputes this fact) would be moot
Check electrophoresis pending
He also certainly could have had worsening renal function after his CTA which was performed as a stroke alert at an outside hospital
Discussed with vascular who will prefer to do this at a later date with improving creatinine
Lasix was discontinued by hospital medicine
IV fluids continued
Okay for discharge from renal standpoint
-
-
Date of Service: September 05, 2025
CC / HPI / ROS
-
Chief Complaint:
KELLY
History of Present Illness:
KELLY/Cr down to 2.8 with IVF
BP stable high
K normal
Review of Systems:
no CP/SOB
Labs
-
Labs:
WBC 11.4 10^3/uL (4.8-10.8) H 09/02/25 12:01
RBC 3.70 10^6/uL (4.70-6.10) L 09/02/25 12:01
Hgb 11.3 g/dL (13.0-18.0) L 09/02/25 12:01
Hct 34.9 % (39.0-52.0) L 09/02/25 12:01
Plt Count 156 10^3/uL (130-400) 09/02/25 12:01
Sodium 138 mmol/L (135-145) 09/05/25 07:14
Potassium 4.3 mmol/L (3.5-5.1) 09/05/25 07:14
Chloride 107 mmol/L (98-107) 09/05/25 07:14
Carbon Dioxide 27 mmol/L (22-30) 09/05/25 07:14
BUN 31 mg/dl (9-20) H 09/05/25 07:14
Creatinine 3.1 mg/dL (0.7-1.3) H 09/05/25 07:14
eGFR 19.57 09/05/25 07:14
Glucose 82 mg/dl (70-99) 09/05/25 07:14
Calcium 9.0 mg/dl (8.4-10.2) 09/05/25 07:14
Phosphorus 3.5 mg/dl (2.5-4.5) 09/03/25 07:44
Physical Exam
-
Vital Signs:
Vital Signs
Temp Pulse Resp BP Pulse Ox
97.9 F 56 16 109/53 95
09/05/25 11:22 09/05/25 11:22 09/05/25 11:22 09/05/25 11:22 09/05/25 11:22
Cardiovascular:: Regular rate and rhythm
Respiratory:: Bilateral: Coarse
Lung Excursion:: Normal
Abdomen:: Nontender and Soft
Bowel Sounds:: Normal
Extremity Edema:: None: Bilateral:
[2025-09-05] MEDS: NSS 1000 IV (12:09)
--- NOTE | 2025-09-05 14:34 | W.DS.TRANS ---
DC Summary - Obstetrician Gynecologist
-
Discharge Instructions:
Sleep Apnea Risk High
Discharge Diagnosis/Procedures Asymptomatic bradycardia with second-degree type
I heart block
Hypertension
Chronic Kidney Disease Stage 4
Left renal artery stenosis, atrophic left kidney
Internal carotid artery aneurysm
Diet As tolerated
Activity No strenuous activity
Driving Restrictions As prior to admission
Bathing Restrictions OK to Shower
Others Tests Repeat blood work to be done on 09/09/2025,
script provided.
Instructions:
Stand-Alone Forms:
Changes to Home Medications: Yes
Discharge Medications:
DC Medications w/original date entered in [facility]
ascorbic acid (vitamin C) 500 mg tablet (Vitamin C) 500 mg PO DAILY Supplement 06/25/24
atorvastatin 80 mg tablet 80 mg PO DAILY High Cholesterol 06/25/24
carvedilol 6.25 mg tablet 6.25 mg PO DAILY Blood Pressure 06/25/24
Held on 09/05/25. Instructions: Hold until cleared by cardiology
cholecalciferol (vitamin D3) 10 mcg (400 unit) tablet (Vitamin D3) 20 mcg PO DAILY Supplement 06/25/24
clopidogrel 75 mg tablet (Plavix) 75 mg PO DAILY Blood Clot Prevention/Tx 06/25/24
eplerenone 25 mg tablet 25 mg PO DAILY Heart Disease/Condition 06/25/24
Held on 09/05/25. Instructions: Hold until cleared by nephrology to restart
ferrous sulfate 325 mg (65 mg iron) tablet (iron) 325 mg PO Q48H Supplement 06/25/24
furosemide 80 mg tablet 80 mg PO DAILY Fluid Retention/Swelling 06/25/24
Held on 09/05/25. Instructions: Hold until cleared by nephrology to restart
hydralazine 100 mg tablet 100 mg PO BID Blood Pressure 06/25/24
isosorbide mononitrate 120 mg tablet,extended release 24 hr 120 mg PO BID Blood Pressure 06/25/24
lutein 20 mg tablet 20 mg PO DAILY Supplement 06/25/24
clonidine HCl 0.1 mg tablet 0.1 mg PO HS Blood Pressure 08/31/25
gabapentin 300 mg capsule 300 mg PO BID Neurological Condition 08/31/25
pantoprazole 40 mg tablet,delayed release 40 mg PO DAILY 08/31/25
potassium chloride 10 mEq capsule,extended release 10 meq PO BID Low potassium 08/31/25
Held on 09/05/25. Instructions: Hold until cleared by nephrology to restart
spironolactone 25 mg tablet 25 mg PO DAILY Blood Pressure 08/31/25
ezetimibe 10 mg tablet 10 mg PO DAILY High Cholesterol 09/02/25
nifedipine 30 mg tablet,extended release 30 mg PO DAILY #90 tabs 09/05/25
Home Medication Changes
carvedilol 6.25 mg tablet 6.25 mg PO DAILY Blood Pressure 06/25/24
Held on 09/05/25. Instructions: Hold until cleared by cardiology
eplerenone 25 mg tablet 25 mg PO DAILY Heart Disease/Condition 06/25/24
Held on 09/05/25. Instructions: Hold until cleared by nephrology to restart
furosemide 80 mg tablet 80 mg PO DAILY Fluid Retention/Swelling 06/25/24
Held on 09/05/25. Instructions: Hold until cleared by nephrology to restart
potassium chloride 10 mEq capsule,extended release 10 meq PO BID Low potassium 08/31/25
Held on 09/05/25. Instructions: Hold until cleared by nephrology to restart
Started:
nifedipine 30 mg tablet,extended release 30 mg PO DAILY #90 tabs 09/05/25
Pending Results: No
[2025-09-05] MEDS: FLUZONE HIGH-DOSE 2025-26 0.5 ML IM (14:54)
--- NOTE | 2025-09-05 15:48 | PN.CDI ---
CDI
- -
CDI:
Physician Documentation Request
Admit Date: 09/02/25 11:20
Dear Daysi Lerma,
Please review the following and provide your response in the progress notes.
Clinical Indicators:
The diagnosis of KELLY was documented in cardiology progress notes but is not consistently noted in subsequent documentation.
09/02 vascular update note states 'Patient has history of CKD with baseline Cr of ~2-2.4 (from 2023) however on today's preop labs his Cr is up significantly to 3.2 and his GFR ~19.'
Laboratory Tests
09/02/25 09/03/25 09/04/25
12:01 07:44 06:47
Creatinine 3.2 H 2.9 H 2.8 H
09/05/25
07:14
Creatinine 3.1 H
Criteria for KELLY*
1 Increase in serum creatinine by > or = to 0.3 mg/dL (> or = to 26.5 micromol/L) within 48 hours, OR
2 Increase in serum creatinine to > or = to 1.5 times baseline, which is known or presumed to have occurred within 7 days, OR
3 Urine volume < 0.5 nL/kg/hour for six hours
Please clarify the following:
____ - KELLY was present on admission and is now resolved.
____ - KELLY was ruled out
____ - Other
Use of terms such as suspected, likely, concern for, or probable (associated with a specific diagnosis that is being evaluated, monitored, or treated as if it exists) are acceptable and can be coded in the inpatient setting, when documented at the
time of discharge.
Thank you,
Michell Larson RN, BSN
CDI Specialist
tiger text
Please use your independent medical judgment in providing your response.
--- NOTE | 2025-09-07 09:25 | W.PN.UPDATE ---
Update Note
Progress Note Update
In response to CDI:
The diagnosis of KELLY was documented in cardiology progress notes but is not consistently noted in subsequent documentation.
09/02 vascular update note states 'Patient has history of CKD with baseline Cr of ~2-2.4 (from 2023) however on today's preop labs his Cr is up significantly to 3.2 and his GFR ~19.'
Laboratory Tests
09/02/25 09/03/25 09/04/25
12:01 07:44 06:47
Creatinine 3.2 H 2.9 H 2.8 H
09/05/25
07:14
Creatinine 3.1 H
Criteria for KELLY*
1 Increase in serum creatinine by > or = to 0.3 mg/dL (> or = to 26.5 micromol/L) within 48 hours, OR
2 Increase in serum creatinine to > or = to 1.5 times baseline, which is known or presumed to have occurred within 7 days, OR
3 Urine volume < 0.5 nL/kg/hour for six hours
Please clarify the following:
____- Other, patient has known chronic kidney disease per nephrology's note suspect patient has CKD stage IV progression and not KELLY. Patient also has diagnosis of left renal artery stenosis with atrophic left kidney.
Use of terms such as suspected, likely, concern for, or probable (associated with a specific diagnosis that is being evaluated, monitored, or treated as if it exists) are acceptable and can be coded in the inpatient setting, when documented at the
time of discharge.
[2025-09-07 11:29] LABS: 24 Hour Urine Total Volume 3170 mL; Urine Collection Length 24 hr
== END 2025-09-05 15:19 | disposition home or self-care (01) | DRG 683 ==
LOC: 3 WEST ACU 11:20
PROVIDERS: Nurse Practitioner Acute Care; ADMITTING PHYSICIAN Surgery Vascular Surgery; CONSULT PHYSICIAN Internal Medicine; CONSULT PHYSICIAN Internal Medicine Cardiovascular Disease; CONSULT PHYSICIAN Specialist; PRIMARYCARE PHYSICIAN Family Medicine
PROC: 3E02340 Introduction of Influenza Vaccine into Muscle, Percutaneous Approach (ICD-10-PCS; 2025-09-05)
DX: N18.4 Chronic kidney disease, stage 4 (severe) (principal); I13.0 Hypertensive heart and chronic kidney disease with heart failure and stage 1 through stage 4 chronic kidney disease, or unspecified chronic kidney disease; I42.8 Other cardiomyopathies; I50.22 Chronic systolic (congestive) heart failure; N40.0 Benign prostatic hyperplasia without lower urinary tract symptoms; F17.200 Nicotine dependence, unspecified, uncomplicated; R00.1 Bradycardia, unspecified; I72.0 Aneurysm of carotid artery; K57.30 Diverticulosis of large intestine without perforation or abscess without bleeding; I44.1 Atrioventricular block, second degree; D47.2 Monoclonal gammopathy; I70.1 Atherosclerosis of renal artery; I73.9 Peripheral vascular disease, unspecified; I65.21 Occlusion and stenosis of right carotid artery; Z79.02 Long term (current) use of antithrombotics/antiplatelets; Z23 Encounter for immunization; Z79.899 Other long term (current) drug therapy; Z86.73 Personal history of transient ischemic attack (TIA), and cerebral infarction without residual deficits
CPT/HCPCS: 76775; 80048; 81003; 81015; 81050; 82570; 82784; 83520; 83735; 84100; 84155; 84156; 84165; 84300; 85027; 85610; 85730; 86334; 86335; 86803; 90662; 93005; 93306; 99406; G0008